=== PATIENT | male | born 1940 | race Caucasian/White ===

== ENCOUNTER → 2016-12-14 | Outpatient (CLI) | payer MEDICARE, BC ==
[~2016-12-14] MED LIST: COREG 3.125M3.125 MG PO; DITROPAN 5 MG TA5 MG PO; DUONEB INH; FERROUS SULFAT325 M2 PO; FUROSEMIDE20 MG PO; GABAPENTIN300 MG PO; ISOSORBIDE DINI30 MG PO; LEVEMIR100 UNIT/1 SQ; NORVASC 5 MG TAB5 MG PO; OMEPRAZOLE20 MG PO; PRAVACHOL40 MG PO; SINGULAIR10 MG PO; VITAMIN B-121000 MCG PO
== END ==
LOC: RT 14:54
DX: R09.02 Hypoxemia (principal); I50.32 Chronic diastolic (congestive) heart failure; J44.9 Chronic obstructive pulmonary disease, unspecified; R91.8 Other nonspecific abnormal finding of lung field; R06.02 Shortness of breath; R94.2 Abnormal results of pulmonary function studies; Z87.891 Personal history of nicotine dependence
CPT/HCPCS: 36600; 71020; 82803; 94060; 94729